=== PATIENT | male | born 1980 | race Caucasian/White ===

== ENCOUNTER 2025-05-11 06:29 | Day surgery (SDC) | payer BC ==
[2025-05-11] MEDS: Lactated Ringers 1,000 ML IV SCH (06:59)
[2025-05-11] MEDS ORDERED: fentaNYL 100 MCG/2 ML SDV ONE (07:25)
[2025-05-11] MEDS ORDERED: Propofol 200 MG/20 ML SDV ONE ×2 (07:25→08:06)
[2025-05-11] MEDS ORDERED: Midazolam 1 MG/ML 2 ML SDV ONE (07:25)
== END 2025-05-11 09:20 | disposition home or self-care (01) ==
LOC: JP.SDS 06:29
PROVIDERS: ATTEND Surgery
DX: Z12.11 Encounter for screening for malignant neoplasm of colon (principal); Z88.0 Allergy status to penicillin
CPT/HCPCS: 00812; 45380; 88305; J2250; J2704; J3010; J7120